=== PATIENT | male | born 1990 | race Caucasian/White ===

== ENCOUNTER 2017-01-06 01:51 | Emergency (ER) | payer OTHER ==
[~2017-01-06] VITALS: Ht 175.3 cm; Wt 90.7 kg
[2017-01-06 02:01] VITALS: BP 158/85
[2017-01-06] MEDS ORDERED: IBUPROFEN 400 MG TABLET. PO ONE (02:30)
[2017-01-06] MEDS ORDERED: LIDOCAINE/EPI/TETRACAINE TOPICAL GEL 3 ML. TP ONE (02:30)
[2017-01-06] MEDS ORDERED: HYDROcodone/APAP 5/325MG 1 TAB TABLET PO ONE (02:30)
[2017-01-06] MEDS ORDERED: NAPR500T PO (03:16)
[2017-01-06] MEDS ORDERED: ACET1TAB33 PO (03:16)
--- NOTE | 2017-01-06 03:16 | PHYS DOC ---
Past Medical History Past Medical History: No Pertinent History Past Surgical History: No Surgical History Alcohol Use: Occasionally Drug Use: None Adult General Chief Complaint Chief Complaint: LACERATION/AVULSION HPI HPI Patient is a 26 year old male who presents with laceration at the base of the # 2 finger of the left hand. Patient has no other complaints, denies any other injury. Review of Systems Review of Systems Constitutional: Denies fever or chills [] Eyes: Denies change in visual acuity HENT: Denies head injury Respiratory: Denies cough or shortness of breath [] Cardiovascular: No chest wall injury GI: No abdominal injury Musculoskeletal: Denies injury other than laceration Integument: Laceration left hand at the base of the #2 finger Neurologic: Denies focal weakness or sensory changes [] Current Medications Current Medications Current Medications Medications (Trade) Dose Ordered Sig/Frank Start Time Stop Time Status Last Admin Dose Admin Acetaminophen/ Hydrocodone Bitart (Lortab 5/325) 1 tab 1X ONCE 01/06/17 02:30 01/06/17 02:31 DC 01/06/17 02:29 1 TAB Ibuprofen (Motrin) 400 mg 1X ONCE 01/06/17 02:30 01/06/17 02:31 DC 01/06/17 02:29 400 MG Lidocaine/ Epinephrine (Let Topical) 3 ml 1X ONCE 01/06/17 02:30 01/06/17 02:31 DC 01/06/17 02:30 3 ML Allergies Allergies Allergies Coded Allergies Type Severity Reaction Last Updated Verified No Known Drug Allergies 01/06/17 No Physical Exam Physical Exam Constitutional: Well developed, well nourished, no acute distress, non-toxic appearance. [] HENT: Normocephalic, atraumatic, Eyes: EOMI, conjunctiva normal, no discharge. [] Neck: Normal range of motion, trachea midline Cardiovascular: Chest deformity, normal perfusion Lungs & Thorax: No tachypnea Abdomen: No distention Skin: Warm, dry, no erythema, no rash. Laceration of the based of the second finger approximately 2 cm in length, linear, no contaminated Back: No tenderness, no CVA tenderness. [] Extremities: No tenderness, no cyanosis, no clubbing, ROM intact, no edema. Neurovascularly distally intact everywhere. Full range of motion at the finger, no evidence of tendon damage. Normal strength of the finger Neurologic: Alert and oriented X 3, normal motor function, normal sensory function, no focal deficits noted. [] Psychologic: Affect normal, judgement normal, mood normal. [] Current Patient Data Vital Signs Vital Signs Date Time Temp Pulse Resp B/P (MAP) Pulse Ox O2 Delivery O2 Flow Rate FiO2 01/06/17 02:29 16 01/06/17 02:01 98.1 65 99 Room Air 98.1 EKG EKG [] Radiology/Procedures Radiology/Procedures [] Course & Med Decision Making Course & Med Decision Making Indication: Laceration Procedure: The patient was placed in the appropriate position and anesthesia around the laceration applied, LET for 15 minutes. The area was then cleaned with copious irrigation.. The laceration was closed with 4 nylon, 5 stitches. Total repaired wound length: 3 cm Other Items: [OTHER ITEMS] The patient tolerated the procedure well Complications: No complications Total time 10 minutes [] Dragon Disclaimer Dragon Disclaimer This electronic medical record was generated, in whole or in part, using a voice recognition dictation system. Departure Departure Impression: Primary Impression: Laceration Disposition: 01 HOME, SELF-CARE Condition: IMPROVED Referrals: NO PCP (PCP) Additional Instructions: Please follow up at her doctor or one of the clinics in the list provided to you in 7 days for suture removal. Ifyou start developing signs of infection as explained to you in the ED please return to the ED immediately for further care and possible antibiotics. Scripts Naproxen (NAPROSYN) 500 Mg Tablet 1 TAB PO BID, #12 TAB 1 Refill Prov: Tushar CARNEY MD 01/06/17 Acetaminophen With Codeine (ACETAMINOPHEN-COD #3 TABLET) 1 Each Tablet 1 TAB PO PRN Q6HRS Y for PAIN for 2 Days, #8 TAB Prov: Tushar CARNEY MD 01/06/17 Tushar CARNEY MD Jan 06, 2017 03:16
== END 2017-01-06 03:23 | disposition home or self-care (01) ==
LOC: ER 01:51
DX: S61.211A Laceration without foreign body of left index finger without damage to nail, initial encounter (principal); W45.8XXA Other foreign body or object entering through skin, initial encounter; Y93.89 Activity, other specified; Y99.8 Other external cause status; Y92.89 Other specified places as the place of occurrence of the external cause
CPT/HCPCS: 12002; 99283-25